=== PATIENT | female | born 1980 | race American Indian/Alaskan Native ===

== ENCOUNTER 2020-08-23 21:16 | Emergency (ER) | payer OTHER ==
[2020-08-23] MEDS ORDERED: ASPIRIN 325 MG TAB PO ONE (21:34)
[2020-08-23 22:31] LABS: Basophils # (Auto) 0.1 K/mm3 (0.0-0.1); Basophils % (Auto) 0.9 % (0.0-1.8); Eosinophils # (Auto) 0.4 K/mm3 (0.0-0.4); Eosinophils % (Auto) 4.6 % (0.0-4.3); Hematocrit 36.2 % (30.3-42.9); Lymphocytes # (Auto) 3.2 K/mm3 (1.2-5.4); Lymphocytes % (Auto) 32.7 % (13.4-35.0); Mean Corpuscular HGB Conc 33 % (30-34); Mean Corpuscular Volume 72 fl (79-97); Monocytes # (Auto) 0.8 K/mm3 (0.0-0.8); Monocytes % (Auto) 8.4 % (0.0-7.3); Platelet Count 345 K/mm3 (140-440); Red Blood Count 5.01 M/mm3 (3.65-5.03); Red Cell Distribution Width 15.6 % (13.2-15.2)
--- NOTE | 2020-08-23 22:39 | XRay Report ---
CHEST 2 VIEWS INDICATION: CHEST PAIN. COMPARISON: FINDINGS: Support devices: None. Heart: Within normal limits. Lungs: No acute air space or interstitial disease. Pleura: No significant pleural effusion. No pneumothorax. Additional findings: None. IMPRESSION: 1. No acute findings. Signer Name: Lucas Rios MD Signed: 08/23/2020 10:34 PM Workstation Name: [id number]
[2020-08-23 22:56] LABS: Alanine Aminotransferase 11 units/L (7-56); BUN/Creatinine Ratio 12; Blood Urea Nitrogen 11 mg/dL (7-17); Calcium 8.6 mg/dL (8.4-10.2); Hemolysis Index 11
[2020-08-23] MEDS ORDERED: KETOROLAC 60 MG/2 ML INJ IM ONE (23:04)
--- NOTE | 2020-08-23 23:14 | Emergency Department Report ---
ED Chest Pain HPI - General Chief Complaint: Chest Pain Stated Complaint: SEVERE CHEST PAIN/RT SIDE PAIN Time Seen by Provider: 08/23/20 22:52 Source: patient Mode of arrival: Ambulatory Limitations: No Limitations - History of Present Illness Initial Comments: This is a 39-year-old -[place] female presents to the emergency department from home with complaint of a 3-week history of right-sided sharp chest pains. Today the patient says that the pain, although still intermittent, has become more intense and is currently 7 out of 10 in intensity. It is sharp in nature. It does not radiate. It is associated with a 1 day history of some mild shortness of breath that worsens with exertion. She tried some Cookie aspirin for her symptoms without any relief and took 162 mg today as well. She denies any tobacco or illicit drug use. No family history of early cardiac disease or MD. No past medical history. No recent travel or sick contacts at home. - Related Data Previous Rx's Medication Instructions Recorded Last Taken Type Ibuprofen [Motrin 800 MG tab] 800 mg PO Q8HR PRN #20 tablet 08/24/20 Unknown Rx Allergies Allergy/AdvReac Type Severity Reaction Status Date / Time No Known Allergies Allergy Unverified 08/23/20 21:31 Heart Score - HEART Score History: Slightly suspicious EKG: Normal Age: < 45 Risk factors: No known risk factors Troponin: < normal limit HEART Score: 0 - EKG Read Time Time EKG Completed: 21:23 EKG Read Time: 21:27 ED Review of Systems ROS: Stated complaint: SEVERE CHEST PAIN/RT SIDE PAIN Other details as noted in HPI Comment: All other systems reviewed and negative Constitutional: denies: chills, fever Eyes: denies: eye pain, vision change ENT: denies: ear pain, throat pain Respiratory: shortness of breath, SOB with exertion. denies: cough Cardiovascular: chest pain. denies: palpitations, edema Gastrointestinal: denies: abdominal pain, vomiting Genitourinary: denies: dysuria, discharge Musculoskeletal: denies: back pain, arthralgia Skin: denies: rash, lesions Neurological: denies: headache, weakness ED Past Medical Hx - Past Medical History Previous Medical History?: No - Surgical History Past Surgical History?: Yes - Social History Smoking Status: Never Smoker Substance Use Type: None - Medications Home Medications: Home Medications Medication Instructions Recorded Confirmed Last Taken Type Ibuprofen [Motrin 800 MG tab] 800 mg PO Q8HR PRN #20 tablet 08/24/20 Unknown Rx ED Physical Exam - General Limitations: No Limitations - Other Other exam information: GENERAL: The patient is well-developed well-nourished. HENT: Normocephalic. Atraumatic. Patient has moist mucous membranes. EYES: Extraocular motions are intact. NECK: Supple. Trachea is midline. CHEST/LUNGS: Clear to auscultation. There is no respiratory distress noted. There is some right-sided chest pain to palpation, but no crepitus or deformity. HEART/CARDIOVASCULAR: Regular. There is no tachycardia. There is no murmur. ABDOMEN: Abdomen is soft, nontender. Patient has normal bowel sounds. SKIN: Skin is warm and dry. NEURO: The patient is awake, alert, and oriented. The patient is cooperative. The patient has no focal neurologic deficits. Normal speech. MUSCULOSKELETAL: There is no tenderness or deformity. There is no limitation range of motion. ED Course Vital Signs 08/23/20 08/23/20 08/23/20 23:05 23:15 23:20 Pulse Rate 61 61 Respiratory 22 19 18 Rate Blood Pressure 117/67 Blood Pressure 107/50 [Right] O2 Sat by Pulse 97 99 Oximetry 08/23/20 08/23/20 08/23/20 23:31 23:45 23:50 Pulse Rate 64 65 Respiratory 18 18 18 Rate Blood Pressure 125/97 121/67 Blood Pressure [Right] O2 Sat by Pulse 100 98 Oximetry 08/24/20 08/24/20 08/24/20 00:01 00:15 00:31 Pulse Rate 63 61 69 Respiratory 14 14 15 Rate Blood Pressure 114/67 124/63 123/63 Blood Pressure [Right] O2 Sat by Pulse 97 98 99 Oximetry 08/24/20 08/24/20 08/24/20 00:45 01:01 01:15 Pulse Rate 65 64 65 Respiratory 18 16 13 Rate Blood Pressure 109/55 117/67 109/62 Blood Pressure [Right] O2 Sat by Pulse 98 98 98 Oximetry 08/24/20 08/24/20 01:31 01:45 Pulse Rate 63 64 Respiratory 14 15 Rate Blood Pressure 121/64 132/72 Blood Pressure [Right] O2 Sat by Pulse 97 99 Oximetry SONY score - Sony Score Age > 65: (0) No Aspirin use within the Past 7 Days: (1) Yes 3 or more CAD Risk Factors: (0) No 2 or more Angina events in past 24 hrs: (1) Yes Known CAD with more than 50% Stenosis: (0) No Elevated Cardiac Markers: (0) No ST Deviation Greater than 0.5mm: (0) No SONY Score: 2 ED Medical Decision Making - Lab Data Result diagrams: 08/23/20 22:20 08/23/20 22:20 Lab Results 08/23/20 08/23/20 08/23/20 Range/Units 22:20 22:20 23:07 WBC 9.7 (4.5-11.0) K/mm3 RBC 5.01 (3.65-5.03) M/mm3 Hgb 12.0 (10.1-14.3) gm/dl Hct 36.2 (30.3-42.9) % MCV 72 L (79-97) fl MCH 24 L (28-32) pg MCHC 33 (30-34) % RDW 15.6 H (13.2-15.2) % Plt Count 345 (140-440) K/mm3 Lymph % (Auto) 32.7 (13.4-35.0) % Runnels % (Auto) 8.4 H (0.0-7.3) % Eos % (Auto) 4.6 H (0.0-4.3) % Baso % (Auto) 0.9 (0.0-1.8) % Lymph # (Auto) 3.2 (1.2-5.4) K/mm3 Runnels # (Auto) 0.8 (0.0-0.8) K/mm3 Eos # (Auto) 0.4 (0.0-0.4) K/mm3 Baso # (Auto) 0.1 (0.0-0.1) K/mm3 Seg Neutrophils % 53.4 (40.0-70.0) % Seg Neutrophils # 5.2 (1.8-7.7) K/mm3 D-Dimer 179.53 (0-234) ng/mlDDU Sodium 136 L (137-145) mmol/L Potassium 3.6 (3.6-5.0) mmol/L Chloride 97.3 L (98-107) mmol/L Carbon Dioxide 29 (22-30) mmol/L Anion Gap 13 mmol/L BUN 11 (7-17) mg/dL Creatinine 0.9 (0.6-1.2) mg/dL Estimated GFR > 60 ml/min BUN/Creatinine Ratio 12 % Glucose 96 (65-100) mg/dL Calcium 8.6 (8.4-10.2) mg/dL Total Bilirubin 0.30 (0.1-1.2) mg/dL AST 14 (5-40) units/L ALT 11 (7-56) units/L Alkaline Phosphatase 85 (35-129) units/L Troponin T < 0.010 (0.00-0.029) ng/mL Total Protein 7.4 (6.3-8.2) g/dL Albumin 4.0 (3.9-5) g/dL Albumin/Globulin Ratio 1.2 % 08/24/20 Range/Units 00:54 WBC (4.5-11.0) K/mm3 RBC (3.65-5.03) M/mm3 Hgb (10.1-14.3) gm/dl Hct (30.3-42.9) % MCV (79-97) fl MCH (28-32) pg MCHC (30-34) % RDW (13.2-15.2) % Plt Count (140-440) K/mm3 Lymph % (Auto) (13.4-35.0) % Runnels % (Auto) (0.0-7.3) % Eos % (Auto) (0.0-4.3) % Baso % (Auto) (0.0-1.8) % Lymph # (Auto) (1.2-5.4) K/mm3 Runnels # (Auto) (0.0-0.8) K/mm3 Eos # (Auto) (0.0-0.4) K/mm3 Baso # (Auto) (0.0-0.1) K/mm3 Seg Neutrophils % (40.0-70.0) % Seg Neutrophils # (1.8-7.7) K/mm3 D-Dimer (0-234) ng/mlDDU Sodium (137-145) mmol/L Potassium (3.6-5.0) mmol/L Chloride (98-107) mmol/L Carbon Dioxide (22-30) mmol/L Anion Gap mmol/L BUN (7-17) mg/dL Creatinine (0.6-1.2) mg/dL Estimated GFR ml/min BUN/Creatinine Ratio % Glucose (65-100) mg/dL Calcium (8.4-10.2) mg/dL Total Bilirubin (0.1-1.2) mg/dL AST (5-40) units/L ALT (7-56) units/L Alkaline Phosphatase (35-129) units/L Troponin T < 0.010 (0.00-0.029) ng/mL Total Protein (6.3-8.2) g/dL Albumin (3.9-5) g/dL Albumin/Globulin Ratio % - EKG Data -: EKG Interpreted by Me EKG shows normal: sinus rhythm, axis, intervals, QRS complexes, ST-T waves Rate: normal - EKG Data When compared to previous EKG there are: previous EKG unavailable Interpretation: normal EKG - Radiology Data Radiology results: image reviewed interpreted by me: Chest x-ray does not show any acute process. There are no pleural effusions, obvious pneumonia and there is no pneumothorax. No significant cardiomegaly. No widened mediastinum. - Medical Decision Making This patient presents with a 3-week history of right-sided nonradiating chest pain that worsened in intensity today. Heart and lung sounds are normal to auscultation. The patient does not appear in any respiratory or acute distress. EKG does not have any morphology consistent with ST elevation myocardial infarction. Chest x-ray does not show any pneumonia, pleural effusions, pneumothorax, wi dened mediastinum, or any other acute process. Patient's labs have been unremarkable including CBC, metabolic panel, negative troponins x2, and a negative D-dimer. The patient was given a dose of Toradol and upon reevaluation appears improved. She has been seen sleeping and/or resting comfortably multiple times throughout her ED course. Vital signs have been reassuring throughout her ED course including being afebrile. The patient is low on both the heart and SONY score. For all these reason she appears safe for discharge home at this time. 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 She will return to the emergency department with any worsening of her symptoms or with any acute distress. Critical Care Time: No Critical care attestation.: If time is entered above; I have spent that time in minutes in the direct care of this critically ill patient, excluding procedure time. ED Disposition Clinical Impression: Right-sided chest pain Disposition: TO HOME OR SELFCARE Is pt being admited?: No Condition: Stable Instructions: Nonspecific Chest Pain, Adult, Chest Wall Pain Additional Instructions: Please follow-up with your primary care physician in the next few days. Please seek out a follow-up with a [facility] certified vehicle fire investigator. Return to the emergency department with any worsening of your symptoms, new or concerning symptoms not addressed during this current emergency department visit, or with any acute distress. Prescriptions: Ibuprofen [Motrin 800 MG tab] 800 mg PO Q8HR PRN #20 tablet PRN Reason: Pain , Severe (7-10) Referrals: DARRELL RAMÍREZ [Other] - 2-3 Days Time of Disposition: 01:52
[2020-08-23] MEDS ORDERED: ASPIRIN 81 MG TAB CHEW PO ONE (23:15)
[2020-08-24 02:03] VITALS: BP 132/72
--- NOTE | 2020-08-25 09:57 | Electrocardiograph Report ---
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
== END 2020-08-24 02:05 | disposition home or self-care (01) ==
LOC: ED 21:16
DX: R07.89 Other chest pain (principal); Z98.890 Other specified postprocedural states; Z79.1 Long term (current) use of non-steroidal anti-inflammatories (NSAID)
CPT/HCPCS: 36415; 71046; 80053; 84484; 85025; 85379; 93005; 96372; 99284; J1885